=== PATIENT | male | born 1980 | race Caucasian/White ===

== ENCOUNTER 2018-07-02 12:38 | Day surgery (SDC) | payer OTHER ==
[~2018-07-02] VITALS: Ht 167.6 cm; Wt 53.0 kg
[2018-07-02 13:14] VITALS: BP 136/87; PULSE 88; TEMP 98.3
[2018-07-02] MEDS ORDERED: EXCEDRIN TENSIO1 CAP PO (13:28)
--- NOTE | 2018-07-02 13:28 | NUR ---
TO RM AT 1252- CALL LIGHT IN REACH BABATUNDE AT BEDSIDE.
[2018-07-02 15:00] VITALS: BP 119/88; PULSE 82; TEMP 98
--- NOTE | 2018-07-02 15:00 | NUR ---
TO BAY 4 PER CART FROM ENDOSCOPY. AMBULATED TO RECLINER WITH ASSIST AND TOLERATED WELL. AT BEDSIDE. ALERT ORIENTED X 3, TALKING TO STAFF AND .
[2018-07-02 15:15] VITALS: BP 120/82; PULSE 78
--- NOTE | 2018-07-02 15:15 | NUR ---
RECEIVED ORANGE WITH CRANBERRY JUICE, TOAST AND JELLO
[2018-07-02 15:30] VITALS: BP 104/78; PULSE 81
--- NOTE | 2018-07-02 15:30 | NUR ---
ATE 100% AND TOLERATED WELL DISCONTINUED IV AND INT- CATHETER INTACT
--- NOTE | 2018-07-02 15:45 | NUR ---
DR ELIAS INTO TALK WITH PATIENT AND . RECEIVED DISCHARGE INSTRUCTIONS AND VERBALIZED UNDERSTANDING
--- NOTE | 2018-07-02 16:00 | NUR ---
DISCHARGED PER WC BY NURSING STAFF TO PRIVATE CAR IN CARE OF .
== END 2018-07-02 16:15 | disposition home or self-care (01) ==
LOC: SDCO 12:38
DX: K59.00 Constipation, unspecified (principal); K76.89 Other specified diseases of liver; K29.30 Chronic superficial gastritis without bleeding; K29.80 Duodenitis without bleeding; R10.9 Unspecified abdominal pain
CPT/HCPCS: OP; J2250; J2405; J3010; J7030